=== PATIENT | female | born 1965 | race Caucasian/White ===

== ENCOUNTER 2017-11-22 16:51 | Emergency (ER) | payer BC, MEDICARE, OTHER ==
[~2017-11-22] VITALS: Ht 170.2 cm; Wt 80.5 kg
[~2017-11-22 16:51] MED LIST: AMBIEN; Norco; Prilosec; Robaxin
[2017-11-22 16:52] VITALS: BP 130/105
[2017-11-22] MEDS ORDERED: morphine 2 MG/ML inj. syringe IM ONE (18:00)
== END 2017-11-22 18:17 | disposition home or self-care (01) ==
LOC: ER 16:51
DX: G89.29 Other chronic pain (principal); M54.9 Dorsalgia, unspecified; Z88.8 Allergy status to other drugs, medicaments and biological substances
CPT/HCPCS: 96372; 99284; J2270

== ENCOUNTER 2020-08-10 12:26 | Emergency (ER) | payer SELFPAY ==
--- NOTE | 2020-08-10 12:30 | NUR ---
PT WAS CALLED INTO TRIAGE AND BECAME BELIGERANT REGARDING OUR COVID POLICY AND REFUSED TO WEAR HER MASK. PT WAS INFORMED THAT SHE NEEDED TO WEAR A MASK WHILE IN TRIAGE, SHE BECAME ARGUMENTITIVE AND SMELLED STRONGLY OF ALCOHOL. PT WAS INFORMED THAT IN ORDER FOR ME TO TRIAGE HER SHE NEEDED TO TEJEDA HER MASK, PT CONTINUED TO REFUSE, AT WHICH TIME SHE WAS ASKED TO LEAVE THE TRIAGE. PT HAD TO BE EXCORTED OUT OF THE ER BY SECURITY WHEN SHE REFUSED TO LET GO OF THE TRIAGE DOOR.
== END 2020-08-10 12:30 | disposition left against medical advice (07) ==
LOC: ER 12:27
DX: Z00.8 Encounter for other general examination (principal); Z53.21 Procedure and treatment not carried out due to patient leaving prior to being seen by health care provider